=== PATIENT | male | born 1970 ===

== ENCOUNTER → 2025-01-29 12:55 | Outpatient (BNVA) | payer OTHER, SELFPAY | PROVIDERS: Visit Provider Specialist | DX: M16.12 Unilateral primary osteoarthritis, left hip (principal); M70.62 Trochanteric bursitis, left hip; M53.3 Sacrococcygeal disorders, not elsewhere classified; G89.29 Other chronic pain | CPT/HCPCS: 73502; 99205 ==

== ENCOUNTER 2025-02-06 15:43 | Outpatient (CLI) | payer OTHER, SELFPAY ==
--- NOTE | 2025-02-06 16:00 | MR_ITS ---
WS: [id number] MRI LEFT HIP WITHOUT CONTRAST. COMPARISON: Radiograph 01/29/2025 Multiplanar, multisequence imaging is performed without contrast. Extensive marrow edema involving a large portion of the LEFT femoral head extending through the neck into the proximal femur. Short segment area of decreased signal in the superior lateral femoral head may be a trabecular injury or early developing fracture. On the T1 sequences there is significant decreased signal in the superior femoral head where there is bone upon bone contact with the acetabulum. There is additional edema extending along the superior acetabulum. There is a small joint effusion and synovial thickening. Intra-articular body measuring 6 mm in the fluid along the anterior joint at the level of the femoral neck. Additional osteophytic ridging around the LEFT femoral head and neck. Abnormal signal throughout the anterior labrum. SI joints are negative. Very mild narrowing of the RIGHT hip joint but no edema. Bilateral mild CAM deformities. Bilateral bony protrusions at the femoral head/ femoral neck junction. MR/MR hip LT wo con* [id number] IMPRESSION: 1. Significant osteoarthritic degenerative changes at the LEFT hip joint with extensive loss of the joint and bone upon bone. 2. Extensive marrow edema in the femoral head and neck and also extending into the superior acetabulum. Short segment decreased signal in the superolateral f emoral head is probably trabecular injury or an area of bone necrosis. Short se gment fracture not excluded. 3. Osteophytic ridging surrounding the femoral head. 4. Bilateral CAM deformities. 5. LEFT joint effusion with synovial thickening and an intra-articular body.
== END 2025-02-06 15:44 | disposition home or self-care (01) ==
PROVIDERS: Visit Provider Specialist
DX: M16.12 Unilateral primary osteoarthritis, left hip (principal); R60.0 Localized edema; R93.7 Abnormal findings on diagnostic imaging of other parts of musculoskeletal system; M25.752 Osteophyte, left hip; M25.452 Effusion, left hip; M24.851 Other specific joint derangements of right hip, not elsewhere classified; M24.852 Other specific joint derangements of left hip, not elsewhere classified
CPT/HCPCS: 73721

== ENCOUNTER → 2025-03-10 07:47 | Outpatient (BNVA) | payer OTHER, SELFPAY | PROVIDERS: PCP Nurse Practitioner; Visit Provider Specialist | DX: M16.12 Unilateral primary osteoarthritis, left hip (principal) | CPT/HCPCS: 99214 ==

== ENCOUNTER → 2025-03-14 12:02 | Outpatient (BNVA) | payer OTHER, SELFPAY | PROVIDERS: PCP Nurse Practitioner; Visit Provider Specialist | DX: M16.12 Unilateral primary osteoarthritis, left hip (principal) | CPT/HCPCS: 20610; 77002; J1100; J2795; J3301; J9999 ==